=== PATIENT | female | born 1980 | race Caucasian/White ===

== ENCOUNTER 2023-05-26 10:09 | Emergency (ER) | payer OTHER, SELFPAY ==
[2023-05-26 10:16] VITALS: BP 122/83; PULSE 97; RESP 18; TEMP 36.6; O2SAT 96; BMI 33.3
--- NOTE | 2023-05-26 11:08 | ED.GENADULT ---
HPI - General Adult General Stated complaint: sore throat / lump in throat Time Seen by Provider: 05/26/23 10:53 History of Present Illness HPI narrative: This 42-year-old female comes in stating that she wants to have an endoscopy. She has had trouble swallowing over the past few weeks and did see ear nose and throat where she had a nasal scope done looking down to the level of the vocal cords. Her symptoms sound typical of a globus sensation. She does not describe any fevers, nausea, vomiting, or altered bowel function. She states that she has lost 9 lb. She also reports that she has quit smoking because of these symptoms. Related Data Home Medications Medication Instructions Recorded Confirmed acetaminophen 500 mg tablet 500 mg PO PRN 10/08/22 10/08/22 albuterol sulfate 90 mcg/actuation 2 inhalation PRN 10/08/22 10/08/22 aerosol inhaler drospirenone 3 mg-ethinyl 1 tab PO DAILY 10/08/22 10/08/22 estradiol 0.02 mg tablet ibuprofen 800 mg tablet 800 mg PO .PRN 10/08/22 10/08/22 levothyroxine 200 mcg tablet 200 mcg PO DAILY 10/08/22 10/08/22 tramadol 50 mg tablet 50 mg PO PRN 10/08/22 10/08/22 Prilosec 05/26/23 Synthroid 05/26/23 Allergies Allergy/AdvReac Type Severity Reaction Status Date / Time Cashew Nut Oil Allergy Unknown Uncoded 10/08/22 13:33 citrus Allergy Unknown Uncoded 10/08/22 13:33 oxycodone Allergy Unknown Uncoded 10/08/22 13:33 Review of Systems Status of ROS: Reports: 10 or more systems reviewed and unremarkable except as noted in History and below Narrative: Constitutional: No fevers, no weight gain or loss. Eyes: No discharge. No vision changes. HENT: No congestion, no sore throat, no ear pain. Cardiovascular: No chest pain, no palpitations. Respiratory: No shortness of breath, no wheezes, no cough. Gastrointestinal: No abdominal pain, no vomiting, no diarrhea. Dysphagia as described above. Genitourinary: No dysuria, no hematuria. Musculoskeletal: Normal range of motion. Skin: No rashes, no pruritis. Neurological: No dizziness, weakness, sensory change, speech change. Endo/Heme/Allergies: No bruising or bleeding. No polydipsia. Pysch: no suicidality, no anxiety, no insomnia. All other systems reviewed and are negative. PFSH [facility] Social History Smoking Status: Never smoker Exam Narrative: Exam Narrative: Constitutional: Well-developed, well-nourished, no acute distress. HEENT: Normocephalic, atraumatic. Neck: Normal range of motion. Nontender. Supple. Heart: Regular. No murmurs. Normal rate. Intact distal pulses. Lungs: Clear to auscultation. No chest discomfort. No wheezes, rhonchi, or rales. Abdomen: Normal bowel sounds. Nontender. No rebound tenderness. Genitalia: Deferred. Back: No midline tenderness. Normal range of motion. Extremities: Normal range of motion. No injury. Skin: Intact. No rash. Warm. No erythema or pallor. Neurologic: No altered sensation. No weakness. Alert and oriented. Psychiatric: No suicidality. No anxiety or depression. No insomnia. Nursing notes and vitals signs are reviewed. Const: Vital Signs, click to edit/add: Vital Signs - 24 hr 05/26/23 10:16 Temperature 98 F Pulse Rate [Pulse Oximeter] 97 Respiratory Rate 18 Blood Pressure [Ri ght Upper Arm] 122/83 Pulse Oximetry 96 Oxygen Delivery Me thod Room Air Course Vital Signs Vital signs: Initial Vital Signs Temperature 98 F 05/26/23 10:16 Temperature Source Temporal Artery Scan 05/26/23 10:16 Pulse Rate 97 05/26/23 10:16 Respiratory Rate 18 05/26/23 10:16 Blood Pressure 122/83 05/26/23 10:16 Blood Pressure Mean 96 05/26/23 10:16 Blood Pressure Position Sitting 05/26/23 10:16 Pulse Oximetry 96 05/26/23 10:16 Oxygen Delivery Method Room Air 05/26/23 10:16 Vital Signs Temperature 98 F 05/26/23 10:16 Pulse Rate 97 05/26/23 10:16 Respiratory Rate 18 05/26/23 10:16 Blood Pressure 122/83 05/26/23 10:16 Pulse Oximetry 96 05/26/23 10:16 Oxygen Delivery Method Room Air 05/26/23 10:16 Temperature 98 F 05/26/23 10:16 Pulse Rate 97 05/26/23 10:16 Respiratory Rate 18 05/26/23 10:16 Blood Pressure 122/83 05/26/23 10:16 Pulse Oximetry 96 05/26/23 10:16 Oxygen Delivery Method Room Air 05/26/23 10:16 Medical Decision Making MDM Narrative Medical decision making narrative: This patient checks into the emergency department hoping to get an endoscopy. I explained that this is a scheduled procedure that does not happen out of the ER unless there is an emergent indication to do so. I did contact the convolute tube winder at the endoscopy clinic in learned that there is an opening in [address] an order for this to occur at 9:45 a.m. on the 28 of May. Instructions were given to the patient regarding when to arrive and other matters in preparation for this procedure. Discharge Plan Discharge Clinical Impression: Globus sensation Patient Disposition: Home, Self-Care Condition: Unchanged Additional Instructions: Return for endoscopy on May 28. Arrive at 9:00 a.m. for a procedure at 9:45 a.m.. Follow up with MD otherwise as needed or return if worsening. Prescriptions: No Action drospirenone-ethinyl estradiol 3-0.02 mg tablet 1 tab PO DAILY albuterol sulfate 90 mcg/actuation HFA aerosol inhaler 2 inhalation PRN levothyroxine 200 mcg tablet 200 mcg PO DAILY acetaminophen 500 mg tablet 500 mg PO PRN tramadol 50 mg tablet 50 mg PO PRN ibuprofen 800 mg tablet 800 mg PO .PRN Prilosec Synthroid Follow Up/Referrals: Generic,Amb Provider [Primary Care Provider] - Stand Alone Forms: [employer] Info Instructions
--- NOTE | 2023-05-26 11:18 | ED.NURSE ---
left without being evaluated by nurse.
== END 2023-05-26 11:14 | disposition home or self-care (01) ==
PROVIDERS: Emergency Provider Emergency Medicine Emergency Medical Services
DX: R09.89 Other specified symptoms and signs involving the circulatory and respiratory systems (principal)
CPT/HCPCS: 99282; 99283; 99284

== ENCOUNTER 2023-05-28 08:47 | Outpatient (CLI) | payer OTHER, SELFPAY ==
--- NOTE | 2023-05-28 10:06 | W.ANESCHARGE ---
Anesthesia Charges Start Date/Time Anesthesia Start Date: 05/28/23 Anesthesia Start Time: 09:48 Stop Date/Time Anesthesia Stop Date: 05/28/23 Anesthesia Stop Time: 10:05
--- NOTE | 2023-05-28 10:07 | W.ANESCHARGE ---
Anesthesia Charges Start Date/Time Anesthesia Start Date: 05/28/23 Anesthesia Start Time: 09:48 Stop Date/Time Anesthesia Stop Date: 05/28/23 Anesthesia Stop Time: 10:05
== END 2023-05-28 08:48 | disposition home or self-care (01) ==
LOC: OP CLINIC 08:47
PROVIDERS: Visit Provider Internal Medicine
DX: R13.10 Dysphagia, unspecified (principal)
CPT/HCPCS: 00731; 43239; 88305; J2704

== ENCOUNTER 2023-09-06 19:56 | Outpatient (CLI) | payer OTHER, SELFPAY ==
--- NOTE | 2023-09-22 12:00 | W.PM.SLEEP ---
Sleep Study Details Details Interpreting Provider: Raysa Date of Sleep Study: 09/06/23 Sleep Study Details: STUDY TYPE:? Home unattended ? BMI:? 33.3 ORDERING PROVIDER:? Raysa INDICATION:? Daytime hypersomnolence ? SLEEP SUMMARY:? 469.4 minutes monitored RESPIRATORY SUMMARY:? AHI 5.9, supine AHI 13.3 Low oxygen 84 29.3% of study oxygen less than 90% Snoring 87% PERIODIC LIMB MOVEMENTS OF SLEEP:? Not recorded during home study CARDIAC:? Range 52-103, mean 72.6 IMPRESSION:? Mild obstructive sleep apnea with supine position dependency Significant hypo oxygenation during nearly 1/3 of the study oxygen was less than 90% RECOMMENDATION: Treatment options include nothing if not significantly sleepy, CPAP or dental appliance. For the hypo oxygenation she is a former smoker and I would recommend a pulmonary referral has she had a recent CT this suggested early emphysema or COPD.
== END 2023-09-06 19:57 | disposition home or self-care (01) ==
LOC: SLEEP 19:57
PROVIDERS: PCP Specialist; Visit Provider Otolaryngology
DX: G47.33 Obstructive sleep apnea (adult) (pediatric) (principal)
CPT/HCPCS: 95806